=== PATIENT | female | born 1940 | race Caucasian/White ===

== ENCOUNTER 2017-11-30 10:05 | Emergency (ER) | payer MEDICARE ==
[~2017-11-30] VITALS: Ht 163.8 cm; Wt 78.9 kg
[2017-11-30 10:08] VITALS: TEMP 36.8; Ht 163.8 cm; Wt 78.9 kg
[2017-11-30] MEDS ORDERED: SIMV40TA2 PO (11:20)
[2017-11-30] MEDS ORDERED: LEVO88TA PO (11:20)
[2017-11-30] MEDS ORDERED: LISI-788 PO (11:20)
[2017-11-30] MEDS ORDERED: ASPI81TA28 PO (11:20)
[2017-11-30] MEDS ORDERED: CHOL1000 PO (11:20)
[2017-11-30] MEDS ORDERED: CALC-51 PO (11:20)
[2017-11-30] MEDS ORDERED: GLIM1TAB2 PO (11:20)
[2017-11-30] MEDS ORDERED: PROP1TAB PO (11:20)
--- NOTE | 2017-11-30 11:23 | DIAGNOSTIC IMAGING REPORT ---
FACIAL BONES-MXILLOFAC WITHOUT CT DOSE: 589.43 mGycm HISTORY: Trauma Pt c/o fall, broken nose? TECHNIQUE: Multiaxial CT images of the maxillofacial region were performed and reformatted in the coronal plane without the use of contrast. A dose lowering technique was utilized adhering to the principles of ALARA. COMPARISON: None. FINDINGS: Nondisplaced cortical fracture tip nasal bones. Mild localized soft tissue edema. The zygomatic arches are intact. All major sinuses are clear. The maxillary spine is intact. All major sinuses are clear. Basilar mild nasal septal displacement the left. Mild hypertrophic change nasal turbinates. Temporomandibular joints are intact. IMPRESSION: Nondisplaced fracture tip is a bones. The above report was generated using voice recognition software. It may contain grammatical, syntax or spelling errors. Electronically signed by: Shyam Valdez M.D. 11/30/2017 11:22 AM Dictated Date/Time: 11/30/2017 11:21 AM
--- NOTE | 2017-11-30 11:45 | EMERGENCY ROOM VISIT NOTE ---
History Report prepared by Preetibjose m: Sriram Saldana Under the Supervision of: Dr. Roly Christian M.D. First contact with patient: 10:21 Chief Complaint: FALL Stated Complaint: CUT ON NOSE FROM FALL History of Present Illness The patient is a 77 year old female who presents to the Emergency Room with complaints of constant facial pain s/p fall occurring shortly prior to arrival. The patient states that she tripped and fell onto her face. She notes that she was wearing glasses which she believes cut her nose. She states "I currently feel a little shaky". The patient is not on any blood thinning medication. She states that she saturated multiple rags with blood. She denies dizziness, loss of consciousness or neck pain. Source of History: patient Onset: Shortly prior to arrival Position: head (face) Timing: constant Associated Symptoms: No LOC, No neck pain Note: Additional symptoms: feeling "shaky". She denies dizziness. Review of Systems See HPI for pertinent positives & negatives. A total of 10 systems reviewed and were otherwise negative. Past Medical & Surgical Medical Problems: (1) Diabetes (2) HTN (hypertension) (3) Kidney stones Surgical Problems: (1) H/O: hysterectomy Family History No pertinent family history stated. Social History Smoking Status: Never Smoker Marital Status: Housing Status: lives with significant other Current/Historical Medications Scheduled Aspirin (Aspirin Ec), 81 MG PO DAILY Calcium Carbonate-Vitamin D (Calcium), 1 TAB PO DAILY Cholecalciferol (Vitamin D3), 1,000 UNITS PO DAILY Glimepiride (Glimepiride), 1 MG PO DAILY Levothyroxine Sodium (Synthroid), 88 MCG PO DAILY Lisinopril/Hctz (Zestoretic 20MG/25MG), 1 TAB PO DAILY Propranolol (Inderal), 60 MG PO DAILY Simvastatin (Zocor), 40 MG PO QPM Allergies Coded Allergies: No Known Allergies (Unverified , 11/30/17) Physical Exam Vital Signs Date Time Temp Pulse Resp B/P (MAP) Pulse Ox O2 Delivery O2 Flow Rate FiO2 11/30/17 11:55 68 20 177/89 94 11/30/17 10:08 36.8 76 20 177/87 95 Room Air Physical Exam GENERAL: Awake, alert, well-appearing, in no acute distress HENT: Normocephalic. Oropharynx unremarkable. Bilateral swelling to the nares. No blood in nares. EYES: Normal conjunctiva. Sclera non-icteric. NECK: Supple. No nuchal rigidity. FROM. No JVD. RESPIRATORY: Clear to auscultation. CARDIAC: Regular rate, normal rhythm. Extremities warm and well perfused. Pulses equal. ABDOMEN: Soft, non-distended. No tenderness to palpation. No rebound or guarding. No masses. RECTAL: Deferred. MUSCULOSKELETAL: Chest examination reveals no tenderness. The back is symmetrical on inspection without obvious abnormality. There is no CVA tenderness to palpation. No joint edema. LOWER EXTREMITIES: Calves are equal size bilaterally and non-tender. No edema. No discoloration. NEURO: Normal sensorium. No sensory or motor deficits noted. SKIN: No rash or jaundice noted. Medical Decision & Procedures ER Provider Diagnostic Interpretation: Radiology results as stated below per my review and radiologist interpretation: FACIAL BONES-MXILLOFAC WITHOUT FINDINGS: Nondisplaced cortical fracture tip nasal bones. Mild localized soft tissue edema. The zygomatic arches are intact. All major sinuses are clear. The maxillary spine is intact. All major sinuses are clear. Basilar mild nasal septal displacement the left. Mild hypertrophic change nasal turbinates. Temporomandibular joints are intact. IMPRESSION: Nondisplaced fracture tip is a bones. The above report was generated using voice recognition software. It may contain grammatical, syntax or spelling errors. Electronically signed by: Shyam Valdez M.D. 11/30/2017 11:22 AM Procedure Laceration Repair Location: bridge of nose Total length: 0.5 cm Complexity: simple Verbal consent was obtained after the risks and benefits were explained, including but not limited to bleeding, scarring, infection, pain, and bone/joint /nerve damage. At this time, the risks of the procedure are less than the risks of NOT performing the procedure. A time out was taken and the correct patient and site identified. Copious irrigation was performed using normal saline. A sterile field was set. The wound was explored for foreign bodies and none found. Examination revealed no injury to deep structures such as tendons, bone, or significant blood vessels. Debridement was not performed. The wound edges were approximated using Dermabond. Hemostasis and excellent approximation was achieved. Antibacterial ointment and a sterile dressing applied. Detailed wound care instructions and signs and symptoms of infection reviewed with the patient. No complications and the patient tolerated the procedure well. ED Course 1044: Past medical records reviewed. The patient was evaluated in room C4. A complete history and physical examination was performed. 1130: I conducted the laceration repair. See the procedure note for details. 1140: Upon reexamination the patient is resting comfortably. I discussed results and treatment plan with the patient. She verbalizes agreement and understanding. The patient is ready for discharge. Medical Decision Differential diagnosis: Etiologies such as fracture, dislocation, intra-abdominal, pneumothorax, intrathoracic , intracranial, neurologic, as well as other traumatic pathologies were entertained. This is a 77-year-old female who presents emergency department complaining of fall. Patient is any consciousness and she is neurovascularly on examination patient on these findings I felt she will do a CAT scan of the facial bones as the patient has a large amount of swelling this showed a nondisplaced nasal fracture. Her wound was irrigated with normal saline and closed using Dermabond. I do feel that the patient is well enough to be discharged home. I offered the patient pain medication which She declined. Patient was in agreement with the treatment plan. Medication Reconcilliation Current Medication List: was personally reviewed by me Blood Pressure Screening Patient's blood pressure: Elevated blood pressure Blood pressure disposition: Referred to PCP Impression Primary Impression: Laceration Additional Impressions: Nasal bones, closed fracture Fall Scribe Attestation The scribe's documentation has been prepared under my direction and personally reviewed by me in its entirety. I confirm that the note above accurately reflects all work, treatment, procedures, and medical decision making performed by me. Departure Information Dispostion Home / Self-Care Referrals Soumya Alston M.D. (PCP) Forms HOME CARE DOCUMENTATION FORM, IMPORTANT VISIT INFORMATION Patient Instructions ED Fx Nose W Lac Skin Glue, My [facility] Additional Instructions You have been examined and treated today on an emergency basis only. This is not a substitute for, or an effort to provide, complete comprehensive medical care. It is impossible to recognize and treat all injuries or illnesses in a single emergency department visit. It is therefore important that you follow up closely with Dr Alston. Call as soon as possible for an appointment. Thank you for your time and consideration. I look forward to speaking with you again soon. Please don't hesitate to call us if you have any questions. Problem Qualifiers Additional Impressions: Nasal bones, closed fracture Encounter type: initial encounter Qualified Codes: S02.2XXA - Fracture of nasal bones, initial encounter for closed fracture Fall Encounter type: initial encounter Qualified Codes: W19.XXXA - Unspecified fall, initial encounter
[2017-11-30 11:55] VITALS: BP 177/89; PULSE 68; O2SAT 94
== END 2017-11-30 11:55 | disposition home or self-care (01) ==
LOC: C.EDB 10:06 → C.EDC 11:55
DX: S01.21XA Laceration without foreign body of nose, initial encounter (principal); S02.2XXA Fracture of nasal bones, initial encounter for closed fracture; W01.0XXA Fall on same level from slipping, tripping and stumbling without subsequent striking against object, initial encounter; E11.9 Type 2 diabetes mellitus without complications; I10 Essential (primary) hypertension; Z87.442 Personal history of urinary calculi; Z90.710 Acquired absence of both cervix and uterus; Z79.82 Long term (current) use of aspirin